=== PATIENT | female | born 1970 ===

== ENCOUNTER 2017-03-29 21:14 | Emergency (ER) | payer OTHER ==
[2017-03-29 21:26] VITALS: BP 125/78; TEMP 99; O2SAT 100
[2017-03-29 21:59] LABS: BASO # 0.1 K/uL (0.0-0.2); BASO % 0.7 % (0.0-2.0); EOS # 0.3 K/uL (0.0-0.7); EOS % 3.2 % (0.0-4.0); HEMOGLOBIN 14.1 g/dL (12.0-16.0); LYMPH # 2.7 K/uL (1.0-4.3); LYMPH % 31.5 % (20.0-40.0); MEAN CELL VOLUME 95.3 fl (81.0-99.0); MEAN CORPUSCULAR HEMOGLOBIN 31.7 pg (27.0-31.0); MEAN CORPUSCULAR HGB CONC 33.3 g/dL (33.0-37.0); MEAN PLATELET VOLUME 8.1 fl (7.2-11.7); MONO # 0.6 K/uL (0.0-0.8); MONO % 6.8 % (0.0-10.0); NEUT # 4.9 K/uL (1.8-7.0); NEUT % 57.8 % (50.0-75.0); NRBC % 0.1 % (0.0-0.0); RBC 4.44 Mil/uL (3.80-5.20); RED CELL DISTRIBUTION WIDTH 13.5 % (11.5-14.5); WHITE BLOOD COUNT 8.5 K/uL (4.8-10.8)
--- NOTE | 2017-03-29 21:59 | ED PDOC ---
Lower Extremity Pain/Injury Time Seen by Provider: 03/29/17 21:30 Chief Complaint (Nursing): Lower Extremity Problem/Injury Chief Complaint (Provider): Left leg swelling and pain History Per: Patient History/Exam Limitations: no limitations Onset/Duration Of Symptoms: Other (3 weeks) Current Symptoms Are (Timing): Still Present Severity: Moderate Additional Complaint(s): Desi Christiansen is a 47 y/o female, with a past medical history of Sciatica, Hypertension, and Herniated Discs, presenting to the ER on 03/29/2017 with swelling and pain to her left leg for the past three weeks. Patient reports her pain at a 5/10 and is associated with numbness and tingling sensations to her leg. Patient states she was evaluated by her primary doctor, Dr. Graff, who referred her to the ED for further evaluation yesterday. However, she did not come at that time, thus prompting a visit today. Patient further notes her swelling fluctuates but exacerbates at the end of each day. Patient denies any associated chest pain, shortness of breath, fever, vomiting, or nausea, but says she has been having a mild cough. Past Medical History Reviewed: Historical Data, Nursing Documentation, Vital Signs Vital Signs: Last Vital Signs Temp 99 F 03/29/17 21:23 Pulse 96 H 03/29/17 21:23 Resp 18 03/29/17 21:23 BP 125/78 03/29/17 21:23 Pulse Ox 100 03/29/17 21:23 - Medical History PMH: Anxiety, Depression, HTN Other PMH: sciatica, herniated discs - Surgical History Surgical History: No Surg Hx - Family History Family History: States: Unknown Family Hx - Social History Current smoker - smoking cessation education provided: No Alcohol: None Drugs: Denies - Immunization History Hx Tetanus Toxoid Vaccination: No Hx Influenza Vaccination: No Hx Pneumococcal Vaccination: No - Home Medications Home Medications: Ambulatory Orders Medication Instructions Recorded Acetaminophen/Butalbital/Caf 1 - 2 tab PO Q6 PRN #20 tab 03/29/17 [Fioricet] - Allergies Allergies/Adverse Reactions: Allergies Allergy/AdvReac Type Severity Reaction Status Date / Time No Known Allergies Allergy Verified 10/20/14 15:01 Review of Systems ROS Statement: Except As Marked, All Systems Reviewed And Found Negative Constitutional: Negative for: Fever Cardiovascular: Negative for: Chest Pain Respiratory: Negative for: Shortness of Breath Gastrointestinal: Negative for: Nausea, Vomiting Musculoskeletal: Positive for: Leg Pain (w/ swelling) Neurological: Positive for: Numbness, Other ((+) tingling sensation ) Physical Exam - Reviewed Nursing Documentation Reviewed: Yes Vital Signs Reviewed: Yes - Physical Exam Appears: Positive for: Non-toxic, No Acute Distress Head Exam: Positive for: ATRAUMATIC, NORMOCEPHALIC Skin: Positive for: Normal Color. Negative for: Rash Eye Exam: Positive for: Normal appearance, EOMI, PERRL Neck: Positive for: Normal, Painless ROM, Supple Cardiovascular/Chest: Positive for: Regular Rate, Rhythm. Negative for: Murmur Respiratory: Positive for: Normal Breath Sounds. Negative for: Respiratory Distress Extremity: Positive for: Normal ROM, Swelling ((+) 2+ edema noted to LLE), Other ((-) Adam's sign; (+) mild warmth to tibial surface ). Negative for: Tenderness Neurologic/Psych: Positive for: Alert, Oriented. Negative for: Motor/Sensory Deficits - Laboratory Results Result Diagrams: 03/29/17 21:48 03/29/17 21:48 - ECG O2 Sat by Pulse Oximetry: 100 Medical Decision Making Medical Decision Makin:30 Initial Impression- 47 y/o female with LLE swelling and pain Initial Plan- * CMP * Urine Dip * Urine Preg * CBC * PTT * PT * Urinalysis * US Duplex Lower Extremity 23:00 Labs reviewed, shows no clinically significant abnormalities. Pt will be discharged routinely with fioricet and was advised to schedule a follow-up with her PMD within 2-3 days. Condition is stable for discharge Clinical Impression- Sciatica and Edema Documented by Germania Patel, acting as a scribe for Rio Brown MD. All medical record entries made by the Scribe were at my direction and personally dictated by me. I have reviewed the chart and agree that the record accurately reflects my personal performance of the history, physical exam, medical decision making, and the department course for this patient. I have also personally directed, reviewed, and agree with the discharge instructions and disposition. Disposition - Clinical Impression Clinical Impression: Edema, Sciatica - Disposition Disposition: Routine/Home Disposition Time: 23:00 Condition: STABLE Prescriptions: Acetaminophen/Butalbital/Caf [Fioricet] 1 - 2 tab PO Q6 PRN #20 tab PRN Reason: Headache Instructions: Lumbar Radiculopathy (ED), Edema (ED)
[2017-03-29 22:05] LABS: SQUAMOUS EPITHIAL 2 /hpf (0-5); URINE BACTERIA RARE (<OCC); URINE BILIRUBIN NEGATIVE (NEGATIVE); URINE BLOOD NEGATIVE (NEGATIVE); URINE CLARITY SLIGHTY-CLOUDY (Clear); URINE COLOR YELLOW (YELLOW); URINE GLUCOSE (UA) NEG (Normal); URINE LEUKOCYTE ESTERASE NEG Leu/uL (Negative); URINE NITRATE NEGATIVE (NEGATIVE); URINE PROTEIN 30 mg/dL (NEGATIVE); URINE UROBILINOGEN 0.2-1.0 mg/dL (0.2-1.0)
[2017-03-29 22:10] LABS: ALB/GLOB RATIO 1.4 (1.0-2.1); ALBUMIN 4.8 g/dL (3.5-5.0); ALT/SGPT 42 U/L (9-52); AST/SGOT 25 U/L (14-36); BLOOD UREA NITROGEN 19 mg/dl (7-17); CALCIUM 9.6 mg/dL (8.4-10.2); GFR AFRICAN-AMERICAN > 60; GFR NON-AFRICAN AMERICAN 60
[2017-03-29 22:15] LABS: PROTHROMBIN TIME 11.8 Seconds (9.8-13.1)
[2017-03-29 23:17] VITALS: PULSE 89; RESP 16
--- NOTE | 2017-03-30 07:47 | US ---
PROCEDURE: Left lower extremity duplex venous HISTORY: swelling COMPARISON: None available. TECHNIQUE: Sonography Real-time ultrasound scan of the veins with color flow, spectral waveform analysis and compression FINDINGS: Left lower extremity: Normal flow, augmentation and compressibility were noted. No evidence of deep vein thrombosis. IMPRESSION: Negative study for acute deep vein thrombosis or other significant pathologic process Concordant results (preliminary interpretation) provided by [facility]. Procedure Completed: 22:15 Preliminary ([facility]) Report: Dictated and Authenticated: 22:43 Final Interpretation: 07:46. March 30, 2017.
== END 2017-03-29 23:17 | disposition home or self-care (01) ==
LOC: H.ER 21:14
DX: M54.30 Sciatica, unspecified side (principal); R60.0 Localized edema; I10 Essential (primary) hypertension; F41.9 Anxiety disorder, unspecified; F32.9 Major depressive disorder, single episode, unspecified